=== PATIENT | male | born 1985 | race African-American/Black ===

== ENCOUNTER 2019-09-22 09:27 | Emergency (ER) | payer SELFPAY ==
[~2019-09-22] VITALS: Ht 177.8 cm; Wt 84.4 kg
[2019-09-22 09:28] VITALS: BP 118/78
--- NOTE | 2019-09-22 09:39 | NUR ---
BREAK RN: 34 YR OLD MALE HERE WITH C/O "I BEEN THROWING UP AND GOING NUMBER 2 EXCESSIVELY SINCE 0300 IN THE MORNING" PT CURRENTLY AT SINK BRUSHING TEETH
[2019-09-22] MEDS ORDERED: ONDANSETRON 2MG/ML, 2ML ONE (09:55)
[2019-09-22] MEDS ORDERED: SODIUM CHLORIDE 0.9% 1,000ML IVBOLUS ONE (10:00)
[2019-09-22] MEDS ORDERED: ONDANSETRON 2MG/ML, 2ML IVPush ONE (10:00)
[2019-09-22] MEDS ORDERED: SODIUM CHLORIDE FLUSH 10ML SYR IVF ONE (10:00)
[2019-09-22 10:10] LABS: BASOPHILS # (AUTO) 0.04 x10^3/uL (0-0.1); BASOPHILS % (AUTO) 1 % (0-1); EOSINOPHILS # (AUTO) 0.03 x10^3/uL (0-0.4); EOSINOPHILS % (AUTO) 1 % (1-7); LYMPHOCYTES # (AUTO) 0.76 x10^3/uL (1-3.4); LYMPHOCYTES % (AUTO) 21 % (22-44); MD NO; MEAN CORPUSCULAR HEMOGLOBIN 31.7 pg (27.5-34.5); MEAN CORPUSCULAR HGB CONC 33.2 g/dL (33.2-36.2); MEAN CORPUSCULAR VOLUME 95.4 fL (81-97); MEAN PLATELET VOLUME 9.1 fL (7.4-10.4); MONOCYTES # (AUTO) 0.45 x10^3/uL (0.2-0.8); MONOCYTES % (AUTO) 12 % (2-9); NEUTROPHILS # (AUTO) 2.38 x10^3/uL (1.8-6.8); NEUTROPHILS % (AUTO) 65 % (42-75); PLATELET COUNT 254 x10^3/uL (130-400); RED BLOOD COUNT 5.19 x10^6/uL (4.38-5.82); RED CELL DISTRIBUTION WIDTH 13.1 % (9.4-14.8)
[2019-09-22 10:22] LABS: ALANINE AMINOTRANSFERASE 113 U/L (12-78); ALBUMIN 4.6 g/dL (3.4-5.0); ANION GAP 5 mmol/L (5-15); CALCIUM 9.1 mg/dL (8.5-10.1); CHLORIDE 107 mmol/L (98-107); CREATININE 1.42 mg/dL (0.7-1.3)
[2019-09-22 10:24] LABS: ALKALINE PHOSPHATASE 100 U/L (45-117); BILIRUBIN,TOTAL 0.6 mg/dL (0.2-1.0); TOTAL PROTEIN 9.2 g/dL (6.4-8.2)
[2019-09-22] MEDS ORDERED: NEOSPORIN OINT. PKT 1 PACKET ONE ×2 (10:37→10:44)
--- NOTE | 2019-09-22 10:55 | NUR ---
provided po, no n/v at this time
--- NOTE | 2019-09-22 10:58 | NUR ---
LATE ENTRY FOR 1005. BREATHALYZER CHARTED IN ERROR.
--- NOTE | 2019-09-22 11:40 | NUR ---
CARE FOR DC PROVIDED. PT DRESSED. NO ACUTE DISTRESS NOTED. NO N/V AT THIS TIME. IV DC'D WITH CANNULA INTACT. REVIEWED DC INSTRUCTIONS WITH PT. UNDERSTANDING VERBALIZED. PT LEFT AMB, GAIT STEADY.
== END 2019-09-22 11:44 | disposition home or self-care (01) ==
LOC: ED 10:12
DX: N28.9 Disorder of kidney and ureter, unspecified (principal); A08.4 Viral intestinal infection, unspecified; R11.2 Nausea with vomiting, unspecified; F17.200 Nicotine dependence, unspecified, uncomplicated
CPT/HCPCS: 36415; 80053; 83690; 85025; 96361; 96374; 99283; J2405; J7030

== ENCOUNTER 2019-10-12 05:01 | Emergency (ER) | payer SELFPAY ==
[~2019-10-12] VITALS: Ht 177.8 cm; Wt 88.5 kg
[2019-10-12 05:53] VITALS: BP 133/85
--- NOTE | 2019-10-12 06:58 | NUR ---
i am assuming care of this pt from oni (chaitanya) at this time. sbar report was exchanged at the bedside.
--- NOTE | 2019-10-12 06:58 | NUR ---
Patient resting comfortably, awaiting flu result.
[2019-10-12 07:18] LABS: RAPID INFLUENZA A Negative (Negative); RAPID INFLUENZA B Negative (Negative)
--- NOTE | 2019-10-12 07:18 | NUR ---
THROUGHPUT: RECEIVED CALL FROM MICRO. FLU IS NEGATIVE FOR A AND B.
== END 2019-10-12 08:05 | disposition home or self-care (01) ==
LOC: ED 07:59
DX: B34.9 Viral infection, unspecified (principal); F17.210 Nicotine dependence, cigarettes, uncomplicated
CPT/HCPCS: 71045; 87400; 93005; 99284